=== PATIENT | male | born 1950 | race Caucasian/White ===

== ENCOUNTER → 2017-04-19 16:51 | Outpatient (CLI) | payer MEDICARE, OTHER, SELFPAY ==
--- NOTE | 2017-04-19 17:04 | RAD_ITS ---
STUDY: X-RAY CHEST REASON FOR EXAM: Male, 66 years old. Cough, COPD TECHNIQUE: PA and lateral views of the chest. COMPARISON: None. FINDINGS: Lungs are adequately inflated with bibasilar atelectasis or scarring. No acute airspace disease. No definitive pulmonary nodule on plain film. There is no demonstrated pleural abnormality. There is borderline cardiomegaly. Normal mediastinum and franko. Normal visualized pulmonary arteries. Normal visualized aortic arch and descending thoracic aorta. Normal visualized thoracic spine. Normal visualized ribs, clavicles, and shoulders. There is no demonstrated abnormality of the visualized soft tissue structures of the upper abdomen. RAD/Chest PA and Lateral IMPRESSION: Adequately inflated lungs with bibasilar atelectasis or scarring. No definitive nodule on plain film Electronically Signed: Luther Argueta DO at 8:51 EST Tel , Service support ,
[2017-04-19 18:08] LABS: Absolute Lymphocyte Count 0.86 X10^3/ul (0.83-4.51); Absolute Neutrophil Count 8.7 X10^3/uL (2.0-7.7); Basophil# 0.01 X10^3/uL; Basophil% 0.1 % (0-1); Eosinophil# 0.13 X10^3/uL; Eosinophils% 1.3 % (0-5); Hematocrit 42.4 % (40-54); Hemoglobin 13.4 g/dl (13.0-16.5); Lymphocyte # 0.86 X10^3/ul (4.0); Lymphocyte % 8.4 % (19-41); Mean Corp Hgb Conc 31.6 g/gl (32-36); Mean Corpuscular Hgb 27.5 pg (27.0-32.0); Mean Corpuscular Volume 87.1 fL (80-94); Mean Platelet Vol. 9.3 fl (6.2-12.0); Monocyte# 0.53 X10^3/uL; Monocyte% 5.2 % (0-10); Neutrophil # 8.72 X10^3/uL (2.7-7.7); Neutrophil % 84.8 % (47-70); Platelet Count 242 K/mm3 (150-450); RBC Distribution Width CV 14.4 % (11.6-14.6); RBC Distribution Width SD 45.9 fl (35.1-43.9); Red Blood Count 4.87 M/mm3 (4.6-6.2); White Blood Count 10.3 K/mm3 (4.4-11.0)
[2017-04-19 18:09] LABS: POSITIVE COUNT NO; POSITIVE DIFFERENTIAL NO; POSITIVE MORPHOLOGY NO
[2017-04-19 19:24] LABS: Rheumatoid Factor < 10.0 IU/mL (<15)
[2017-04-21 14:13] LABS: ANTINUCLEAR ANTIBODIES DIRECT Positive (Negative)
[2017-04-22 03:07] LABS: Cytoplasmic Ab (C-ANCA) <1:20 titer (Neg:<1:20); QNTFERON TB Ag Minus Nil Value < 0 IU/mL (.); QNTFERON TB Ag Value 0.01 IU/mL (.); QNTFERON TB Mitogen Value > 10.00 IU/mL (.); QNTFERON TB Nil Value 0.02 IU/mL (.)
[2017-04-22 10:57] LABS: Angiotensin Convert Enzyme 55 U/L (14-82); Perinuclear Ab (P-ANCA) <1:20 titer (Neg:<1:20); QNTIFERON TB Gold Negative (Negative)
== END ==
PROVIDERS: Visit Provider Internal Medicine Pulmonary Disease
DX: J44.9 Chronic obstructive pulmonary disease, unspecified (principal); J18.9 Pneumonia, unspecified organism
CPT/HCPCS: 36415; 71046; 82164; 85025; 86038; 86256; 86431; 86480

== ENCOUNTER → 2017-05-10 11:13 | Outpatient (CLI) | payer MEDICARE, OTHER, SELFPAY ==
--- NOTE | 2017-05-10 11:17 | RAD_ITS ---
STUDY: X-RAY CHEST REASON FOR EXAM: Male, 66 years old. COPD. TECHNIQUE: PA and lateral views of the chest. COMPARISON: Comparison is made with prior study dated April 19, 2017. FINDINGS: Mild residual infiltrates persist at the lung bases although there has been moderate degree of improvement. Further follow-up is recommended. There is no demonstrated pleural abnormality. Normal size heart. Normal mediastinum and franko. Normal visualized pulmonary arteries. There is atherosclerotic tortuosity of the aortic arch and descending thoracic aorta. Normal visualized thoracic spine. Normal visualized ribs, clavicles, and shoulders. Hiatal hernia. RAD/Chest PA and Lateral IMPRESSION: Residual infiltrates in both lower lobes although there has been a moderate degree of improvement as compared to prior study. Electronically Signed: Beka Rivera MD at 20:08 EST Tel [phone], Service support ,
== END ==
PROVIDERS: Family Provider Family Medicine; PCP Family Medicine; Visit Provider Internal Medicine Pulmonary Disease
DX: J44.9 Chronic obstructive pulmonary disease, unspecified (principal); R91.8 Other nonspecific abnormal finding of lung field
CPT/HCPCS: 71046

== ENCOUNTER 2017-05-18 12:05 | Observation (INO) | payer MEDICARE, OTHER, SELFPAY ==
[2017-05-10 10:40] VITALS: BP 118/65; PULSE 72; RESP 17; TEMP 37.3; O2SAT 95; BMI 45.0
[2017-05-18] VITALS (13 sets, daily range): BP systolic 141–168; BP diastolic 45–108; PULSE 78–98; RESP 16–78; TEMP 36.8–37.9; O2SAT 90–98; BMI 41.8
[2017-05-18] MEDS: Ipratropium/Albuterol Sulfate 3 ML AMPUL.NEB INHALATION (12:00)
[2017-05-18 12:11] LABS: Bedside Glucose 133 mg/dL (70-110)
[2017-05-18] MEDS: Cefazolin 2 GM in 0.9% Normal Saline 100 ML IV (12:37)
--- NOTE | 2017-05-18 13:20 | CALC_PTH ---
PATIENT: JASMYNE NARVAEZ LOC: MS3 U#:[id number] AGE/SX: 66/M ROOM: [facility] [place] RE05/18/[address]: Dr. Erwin Diaz MD : 1950 BED: 1 DIS: 05/20/2017 SPEC #: [id number] RECD: 05/19/17 12:12 STATUS: LINDA REQ #: [id number] PANCHO: 05/18/17 13:[address]: Delbert Dawson DEPT: SURGICAL PATHOLOGY RECD BY: Kishan Stanley ENTERED: 05/19/17 13:10 SP TYPE: Calculi OTHR DR: MD Dr. Yoli Lott MD Tissues: CALCULI Procedures: Surgery Specimen Level I Comments: @ Ordering doctor for CUATE edited from to @ by RGOOD at 05/19/17 1505 @ Submitting doctor edited from to @ by RGOOD at 05/19/17 1505 HEADER OPERATION: Establishment of nephrostomy access, nephrostolithotomy, cyst PRE-OP DIAGNOSIS: Right renal calculi TISSUE SUBMITTED: Calculi GROSS DIAGNOSIS Fragments of stone, clinically right renal calculi, saved entirely for analysis if needed. BIA:hawa 05/19/17 COMMENT If chemical analysis is requested on this specimen, please notify the laboratory. GROSS DESCRIPTION Received in fixative is one container labeled with the patient's name and designated calculi. The specimen consists of multiple irregular fragments of stones mixed with blood clot that in aggregate measure 3.5 x 3 x 0.5 cm. The stones are levy-brown in color. The stones are saved for analysis if needed. / BIA:hawa 05/19/17 CPT: 71598
[2017-05-18] MEDS: Bupivacaine 0.25% 30 ML Vial (16:15)
--- NOTE | 2017-05-18 16:46 | PCM.OPRPT ---
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 1 cystoscopy and right retrograde pyelogram and placement of a right axis sheath. 2 fluoroscopic guided placement of a nephrostomy track and establishment of a right nephrostomy track. 3 right percutaneous nephrostolithotomy for stone about 5 cm in size stage 1 procedure. 4 Right nephrostomy tube placement and right nephrostogram. Description of Surgical Findings:: 66-year-old male was taken back to the operating room at the smooth induction of general anesthesia he was first placed supine on the table and the penis and testicles were prepped and draped in usual sterile fashion I went into the bladder with a 21 [place]bourgish rigid cystourethroscope. He had a very high bladder neck and then I will got into the bladder and identified the left and right ureteral orifice. The right ureteral orifice was cannulated with a Glidewire and a Pollack catheter I had the use the Bridge to help deflect the wire because of the very high bladder neck. I then placed a Pollack catheter did a retrograde pyelogram and then advanced a wire up into the right kidney and then advanced a axis sheath up into the right kidney. The patient was then put over on a cart and then repositioned prone make sure that all pressure points were padded. The right flank was then prepped shaved prepped and draped in usual sterile fashion I then reached down and reach the axis sheath from below to get axis from below the ureter first we then went in with ureteroscopy and went up the ureter with her ureteroscope and found the stone in the kidney we then located R axis point to the stone that we wanted to get to the kidney. Patient was very large and severe obese patient with a BMI of 41. Took quite some time to triangulate and find the axis tract to the kidney used a long stylette needle and was able to get underneath the rib to the kidney using as long needle to get a tract to the stone. However the tract was so long that the axis sheath would not bridge the entire length of the track so once the wire was in place over the wire I left a safety wire that went into the pelvis and down the ureter I then went in with the nephrostomy tube balloon dilator and dilated the track using the entire length of the balloon with 30 laura of pressure over that I advanced the axis sheath the access sheath was about 16 cm in length it was buried in the skin and still was not quite long enough to get all the way to the stone in the kidney I then used the renal dilators to manually dilate the rest of the track. I then went into the access sheath with the nephroscope and then with the flexible cystoscope initially we had a lot of bleeding after the dilation of the tract fortunately the bleeding stopped. I then went in with the nephroscope and encountered the stone either follow the wire through the renal parenchyma since the axis sheath would not reach all the way to the stone. I avoided going in and out of the kidney because of the difficult access. At this point probably have been working about 2-1/2 hours then we started working on the stone with the ultrasonic lithotripter and pneumatic lithotripter and started working on the stone fragmenting the stone. The stone was quite hard and we increased the power of the ultrasound lithotripter as much as possible and the pneumatic lithotripter as much as possible. After about 2 hours the major stone fragment had been broken up into little pieces but there is still a lot of pieces that were within the renal pelvis at this point given the patient's overall health and condition felt it would be best to leave a nephrostomy tube to let and establish track develop and bring him back for a second stage procedure to remove the rest the of the remaining fragments in the right kidney so a lot of the fragments were removed probably about 50% but after such a long anesthesia decided to abort and bring him back for second stage percutaneous nephrostolithotomy procedure. At this point put a wire into the renal pelvis all the wire advanced a 16 [place] tip catheter with 33 cc in the balloon left this in the in the pelvis and then remove the access sheath secured the nephrostomy tube to the skin and sutured the openings in the skin with subcuticular stitches bandages and dressings were placed. The patient was then flipped prone replace the Abel catheter into the bladder and drain the bladder and then the patient's anesthetic was reversed. We performed a nephrostogram confirmed that the nephrostomy tube was in good position in the kidney we removed the access sheath remove the ureteroscope and the patient anesthetic was reversed is taken back to the PACU in good condition with nephrostomy tube draining well. He will stay in the hospital few days, will consult hospitalist given his multiple medical problems including lung problems and diabetes. And he will have to come back for a second stage percutaneous procedure in about a month. Type of Anesthesia:: General Anesthesiologist: Olaf Nicholson Drains: right nephrostomy tube and abel catheter. - Admit VTE Documentation VTE Present on Admission: No VTE Mechan Device Prophylaxis: SCD's VTE Pharm Prophylaxis ordered?: No Reason prophylaxis not ordered:: Treatment Not Indicated
[2017-05-18 17:06] LABS: Bedside Glucose 161 mg/dL (70-110)
[2017-05-18 17:23] LABS: Hematocrit 37.6 % (40-54); Mean Corp Hgb Conc 31.9 g/gl (32-36); Mean Corpuscular Volume 87.9 fL (80-94); Platelet Count 159 K/mm3 (150-450); RBC Distribution Width CV 14.2 % (11.6-14.6); RBC Distribution Width SD 45.3 fl (35.1-43.9); Red Blood Count 4.28 M/mm3 (4.6-6.2); White Blood Count 7.7 K/mm3 (4.4-11.0)
[2017-05-18 17:24] LABS: Scan Indicated on CBC? Y/N NO
--- NOTE | 2017-05-18 17:32 | PN_ITS ---
Subjective: Patient is a 66-year-old gentleman with multiple comorbidities who was admitted by Dr. 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 Patient underwent 1 cystoscopy and right retrograde pyelogram and placement of a right axis sheath; fluoroscopic guided placement of a nephrostomy track and establishment of a right nephrostomy track; right percutaneous nephrostolithotomy for stone about 5 cm in size stage 1 procedure.; Right nephrostomy tube placement and right nephrostogram 05/18/[address] Dawson the hospitalist service was consulted to assist with management of patient medical comorbidities including hypertension as well as diabetes mellitus type 2 Objective: GENERAL: cooperative HEENT: Clear conjunctiva, NECK; supple, normal thyroid, CHEST: Diminished to auscultation bilaterally, bilateral rhonchi HEART: Regular S1 S2, no audible murmurs ABDOMEN: soft, non-tender, normoactive bowel sounds, RECTAL: deferred EXTREMITIES: No edema, no clubbing, no cyanosis. 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 SKIN: No lesions no erythema, Vitals/I&O's: Vital Signs Temp Pulse Resp BP Pulse Ox 100.2 F H 92 20 H 156/83 H 98 05/18/17 16:51 05/18/17 17:15 05/18/17 17:15 05/18/17 17:15 05/18/17 17:15 Oxygen Flow Rate 2 Oxygen Delivery Method Nasal Cannula Weight: 136.078 kg Body Mass Index (BMI) 41.8 Laboratory Results 05/18/17 12:01: POC Glucose 133 H 05/18/17 16:59: POC Glucose 161 H 05/18/17 17:02: WBC 7.7, RBC 4.28 L, Hgb 12.0 L, Hct 37.6 L, MCV 87.9, MCH 28.0 , MCHC 31.9 L, RDW 14.2, RDW Differential 45.3 H, Plt Count 159, MPV 9.0 05/18/17 17:02: Sodium Pending, Potassium Pending, Chloride Pending, Carbon Dioxide Pending, Anion Gap Pending, BUN Pending, Creatinine Pending, Est GFR ( MDRD) Af Amer Pending, Est GFR (MDRD) Non-Af Pending, BUN/Creatinine Ratio Pending, Glucose Pending, Calcium Pending Current Medications Acetaminophen (Tylenol) 500 - 1,000 mg PO Q8H PRN PRN PRN Reason: PAIN Hydrocodone Bitart/Acetaminophen ([place] 5mg-325mg) 1 - 2 tablet PO Q6H PRN PRN PRN Reason: Mild-moderate(pain scale 1-5) Albuterol Sulfate (Ventolin Aerosols) 2.5 mg INHALATION Q4H PRN PRN Reason: WHEEZING Albuterol Sulfate (Ventolin Aerosols) 2.5 mg INHALATION Q6HWA.RT [facility] Allopurinol (Zyloprim) 100 mg PO BIDCM [facility] Amlodipine Besylate (Norvasc) 10 mg PO DAILY [facility] Artificial Tears (Tears Naturale, Artificial Tears) 1 drop OPHTHALMIC 4X/DAY [facility] Atorvastatin Calcium (Lipitor) 5 mg PO QHS [facility] Budesonide (Pulmicort Aerosol) 0.5 mg INHALATION Q12H.RT [facility] Cholecalciferol (Vitamin D) 2,000 unit PO DAILYCM [facility] Cyanocobalamin (Vitamin B12) 500 mcg PO DAILYCM [facility] Docusate Sodium (Colace) 200 mg PO BID [facility] Furosemide (Lasix) 20 mg PO MoTuWeThFr@1000 [facility] Sodium Chloride () 1,000 mls @ 125 mls/hr IV .Q8H [facility] Ciprofloxacin (Cipro) 400 mg in 200 mls @ 200 mls/hr IV Q12 [facility] Stop: 05/19/17 10:59 Loperamide HCl (Imodium) 4 mg PO 4X/DAY [facility] Loratadine (Claritin) 10 mg PO DAILY [facility] Losartan Potassium (Cozaar) 100 mg PO DAILY [facility] Metoclopramide HCl (Reglan) 10 mg IV Q8H PRN PRN PRN Reason: Nausea/vomiting Metoprolol Tartrate (Lopressor (Beta Osvaldo)) 25 mg PO BID [facility] Morphine Sulfate (Morphine) 2 mg IV Q2H PRN PRN PRN Reason: Mod-severe(pain scale 6-10) Non-Formulary Medication (Difluprednate) 1 drop EACH EYE BID [facility] Non-Formulary Medication (Nepafenac [Ilevro]) 1 drop OP BID [facility] Ondansetron HCl (Zofran) 4 mg IV Q8H PRN PRN Reason: Nausea Tamsulosin HCl (Flomax) 0.4 mg PO QHS [facility] Assessment/Plan Patient is a 66-year-old gentleman with multiple comorbidities who was admitted by Dr. 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 Patient underwent 1 cystoscopy and right retrograde pyelogram and placement of a right axis sheath; fluoroscopic guided placement of a nephrostomy track and establishment of a right nephrostomy track; right percutaneous nephrostolithotomy for stone about 5 cm in size stage 1 procedure.; Right nephrostomy tube placement and right nephrostogram 05/18/[address] Dawson the hospitalist service was consulted to assist with management of patient medical comorbidities including hypertension as well as diabetes mellitus type 2 1. 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 Patient underwent cystoscopy and right retrograde pyelogram and placement of a right axis sheath; fluoroscopic guided placement of a nephrostomy track and establishment of a right nephrostomy track; right percutaneous nephrostolithotomy for stone about 5 cm in size stage 1 procedure. ; Right nephrostomy tube placement and right nephrostogram on 05/18/[address] Dawson 2. Hypertension-blood pressure controlled, home medications continued with dose adjustment as needed 3. Dyslipidemia-patient is on statin therapy, continued at home dose 4. Diabetes mellitus type II: Controlled on long acting insulin, Accu-Cheks a.c. and at bedtime and covered with sliding scale insulin 5. Morbid obesity with BMI of 41.8 weight loss recommended 6. COPD (and emphysema0 patient is followed by Dr. Lozano 7. Gout 8. Previous history of DVT patient has an IVC filter 9. Obstructive sleep apnea on CPAP at night 10. History of right adrenal mass followed by PCP 11. DVT prophylaxis recommend SCDs for now and chemoprophylaxis when okay with urology Code Visit Inpatient E&M: 97961 [facility] Hosp L3
[2017-05-18 17:47] LABS: Anion Gap 7 (5-15); BUN 20 mg/dL (7-18); Calcium,Total 8.4 mg/dL (8.5-10.1); Chloride 107 mmol/L (98-107); Creatinine, Serum 2.01 mg/dL (0.70-1.30); EST Glomerular Filtration Rate 36 mL/min (>60); Est Glom Filt Rate - Afr Amer 43 mL/min (>60); Estimated Creatinine Clearance 39.02 ml/min; Glucose 151 mg/dL (74-106); Potassium 4.6 mmol/L (3.5-5.1); Sodium Level 142 mmol/L (136-145)
[2017-05-18] MEDS: 0.9% Normal Saline 1,000 ML 125 ML IV (18:24)
--- NOTE | 2017-05-18 19:18 | NURSING ---
no belongings bag with pt- called sec. and she will call pacu
[2017-05-18 19:31] LABS: Bedside Glucose 176 mg/dL (70-110)
[2017-05-18] MEDS: Albuterol 2.5 MG/3 ML VIAL.NEB. INHALATION (19:32)
[2017-05-18] MEDS: Budesonide Respules 0.5 MG/2 ML AMPUL.NEB. INHALATION (19:32)
[2017-05-18] MEDS: Metoprolol Tartrate 25 MG Tablet PO (21:41)
[2017-05-18] MEDS: Atorvastatin Calcium 10 MG Tablet 5 MG PO (21:42)
[2017-05-18] MEDS: Docusate Sodium 100 MG Capsule 200 MG PO (21:42)
[2017-05-18] MEDS: Tamsulosin HCl 0.4 MG Capsule PO (21:42)
[2017-05-18] MEDS: Ciprofloxacin 400 MG/200 ML BAG 200 MG IV (21:51)
[2017-05-18 23:30] LABS: Bedside Glucose 180 mg/dL (70-110)
[2017-05-19] VITALS (11 sets, daily range): BP systolic 125–152; BP diastolic 68–75; PULSE 75–94; RESP 18; TEMP 37.3–37.7; O2SAT 92–98
[2017-05-19] MEDS: 0.9% Normal Saline 1,000 ML 125 ML IV (03:44)
[2017-05-19 05:45] LABS: Hemoglobin 11.4 g/dl (13.0-16.5); Mean Corp Hgb Conc 32.6 g/gl (32-36); Mean Corpuscular Hgb 28.6 pg (27.0-32.0); Mean Corpuscular Volume 87.7 fL (80-94); Mean Platelet Vol. 9.1 fl (6.2-12.0); Platelet Count 185 K/mm3 (150-450); RBC Distribution Width SD 44.1 fl (35.1-43.9); Red Blood Count 3.99 M/mm3 (4.6-6.2)
[2017-05-19 05:52] LABS: Scan Indicated on CBC? Y/N NO
[2017-05-19 06:06] LABS: Anion Gap 6 (5-15); BUN 21 mg/dL (7-18); BUN/Creat Ratio 10.8 RATIO (10-20); Calcium,Total 7.9 mg/dL (8.5-10.1); Chloride 105 mmol/L (98-107); Creatinine, Serum 1.95 mg/dL (0.70-1.30); EST Glomerular Filtration Rate 37 mL/min (>60); Est Glom Filt Rate - Afr Amer 45 mL/min (>60); Estimated Creatinine Clearance 40.22 ml/min; Glucose 189 mg/dL (74-106); Potassium 5.1 mmol/L (3.5-5.1); Sodium Level 139 mmol/L (136-145)
[2017-05-19] MEDS: Albuterol 2.5 MG/3 ML VIAL.NEB. INHALATION ×3 (06:57→19:44)
[2017-05-19] MEDS: Budesonide Respules 0.5 MG/2 ML AMPUL.NEB. INHALATION ×2 (06:57→19:44)
[2017-05-19 07:06] LABS: Bedside Glucose 171 mg/dL (70-110)
--- NOTE | 2017-05-19 07:12 | PCM.DC.URO ---
Discharge Diet: Light diet - advance as tolerated Discharge Activity: Return to Normal Activity May shower in (days): 1 Call your doctor if your incision/area has: Continuous Slow Oozing, Sudden Increased Bleeding, Increased Pain/ Swelling, Increased Redness, Foul Smelling Discharge, Swelling at the incision site Call your doctor if you observe: Fever of 101 or Higher, Inability to urinate, Inability to have a bowel movement, Uncontrolled pain Suture Line Care: Avoid Pulling/Pushing, Avoid Pinching/Bending Additional Instructions: home with nephrostomy tube, If dressing falls off okay to change with dry sterile dressing. Allergies/Adverse Reactions: Allergies Penicillins [PCN] Allergy (Verified 05/10/17 10:22) Unknown Medications to take at Discharge Acetaminophen [Extra Strength Non-Aspirin] 1 - 2 tab PO Q8H PRN PRN 05/10/17 Albuterol Inhaler [Ventolin Hfa] 1 - 2 puff INHALATION Q6H PRN PRN 05/10/17 Allopurinol 100 mg PO BID 05/10/17 Amlodipine [Norvasc] 10 mg PO DAILY 05/10/17 Aspirin [Aspir-Low] 81 mg PO DAILY 05/10/17 Budesonide/Formoterol 160/4.5 [Symbicort 160/4.5 Mcg Inhaler (SP)] 2 puff INHALATION BID 05/10/17 Cetirizine HCl [Zyrtec] 10 mg PO DAILY 05/10/17 Cholecalciferol (Vitamin D3) [Vitamin D3] 2,000 unit PO DAILY 05/10/17 Cyanocobalamin [Vitamin B12] 500 mcg PO DAILY 05/10/17 Difluprednate [Durezol] 1 drop EACH EYE BID 05/10/17 Insulin NPH Human Isophane [Novolin N] 42 unit SQ QHS 05/10/17 Insulin NPH Human Isophane [Novolin N] 55 unit SQ DAILY 05/10/17 Linagliptin [Tradjenta] 5 mg PO DAILY 05/10/17 Loperamide [Imodium] 4 mg PO 4X/DAY 05/10/17 Losartan Potassium [Cozaar] 100 mg PO DAILY 05/10/17 Metoprolol Tartrate [Lopressor (beta gisele)] 25 mg PO BID 05/10/17 Nepafenac [Ilevro] 1 drop OP BID 05/10/17 Polyvinyl Alcohol/Povidone/Pf [Refresh Classic Eye Drops] 1 each OP 4X/DAY 05/10/17 Simvastatin [Zocor] 10 mg PO QHS 05/10/17 Tamsulosin HCl [Flomax] 0.4 mg PO QHS 05/10/17 Torsemide [Demadex] 10 mg PO MOTUWETHFR 05/10/17 Ciprofloxacin [Cipro] 500 mg PO BID #14 tab 05/19/17 The following prescriptions were given: Ciprofloxacin [Cipro] 500 mg PO BID #14 tab Primary Care Physician: Yoli Benedict MD [Primary Care Provider] - Please Follow Up With: Delbert Dawson MD When: My office will call you to get set up for 2nd surgery.
[2017-05-19] MEDS: Cyanocobalamin 500 MCG Tablet PO (08:13)
[2017-05-19] MEDS: Allopurinol 100 MG Tablet PO ×2 (08:13→18:36)
--- NOTE | 2017-05-19 09:09 | PCM.PN.HOSP ---
Subjective: Patient seen plan is for patient to be discharged home today by Dr. Dawson Objective: GENERAL: cooperative HEENT: Clear conjunctiva, NECK; supple, normal thyroid, CHEST: Diminished to auscultation bilaterally, bilateral rhonchi HEART: Regular S1 S2, no audible murmurs ABDOMEN: soft, non-tender, normoactive bowel sounds, RECTAL: deferred EXTREMITIES: No edema, no clubbing, no cyanosis. 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 SKIN: No lesions no erythema, Vitals/I&O's: Vital Signs Temp Pulse Resp BP Pulse Ox 99.2 F H 77 18 152/73 H 93 05/19/17 03:29 05/19/17 06:57 05/19/17 06:57 05/19/17 03:29 05/19/17 06:57 Oxygen Flow Rate 2 Oxygen Delivery Method Nasal Cannula Weight: 136.078 kg Body Mass Index (BMI) 41.8 Finger Stick Blood Glucose 161 Intake and Output for Last 24 Hours 05/17/17 05/18/17 05/19/17 23:59 23:59 23:59 Intake Total 3400 / 3400 774 / 774 Output Total 805 / 805 775 / 775 Balance 2595 / 2595 -1 / -1 Laboratory Results 05/18/17 12:01: POC Glucose 133 H 05/18/17 16:59: POC Glucose 161 H 05/18/17 17:02: WBC 7.7, RBC 4.28 L, Hgb 12.0 L, Hct 37.6 L, MCV 87.9, MCH 28.0, MCHC 31.9 L, RDW 14.2, RDW Differential 45.3 H, Plt Count 159, MPV 9.0 05/18/17 17:02: Sodium 142, Potassium 4.6, Chloride 107, Carbon Dioxide 28.0, Anion Gap 7, BUN 20 H, Creatinine 2.01 H, Estim Creat Clear Calc 39.02, Est GFR (MDRD) Af Amer 43 L, Est GFR (MDRD) Non-Af 36 L, BUN/Creatinine Ratio 10.0, Glucose 151 H, Calcium 8.4 L 05/18/17 19:12: POC Glucose 176 H 05/18/17 21:49: POC Glucose 180 H 05/19/17 05:32: WBC 10.0, RBC 3.99 L, Hgb 11.4 L, Hct 35.0 L, MCV 87.7, MCH 28.6, MCHC 32.6, RDW 14.0, RDW Differential 44.1 H, Plt Count 185, MPV 9.1 05/19/17 05:32: Sodium 139, Potassium 5.1, Chloride 105, Carbon Dioxide 28.0, Anion Gap 6, BUN 21 H, Creatinine 1.95 H, Estim Creat Clear Calc 40.22, Est GFR (MDRD) Af Amer 45 L, Est GFR (MDRD) Non-Af 37 L, BUN/Creatinine Ratio 10.8, Glucose 189 H, Calcium 7.9 L 05/19/17 07:02: POC Glucose 171 H Current Medications Acetaminophen (Tylenol) 500 - 1,000 mg PO Q8H PRN PRN PRN Reason: PAIN Hydrocodone Bitart/Acetaminophen ([place] 5mg-325mg) 1 - 2 tablet PO Q6H PRN PRN PRN Reason: Mild-moderate(pain scale 1-5) Albuterol Sulfate (Ventolin Aerosols) 2.5 mg INHALATION Q4H PRN PRN Reason: WHEEZING Albuterol Sulfate (Ventolin Aerosols) 2.5 mg INHALATION Q6HWA.RT [facility] Last Admin: 05/19/17 06:57 Dose: 2.5 mg [facility]op[facility]rim) [facility] Last Admin: 05/19/17 08:13 Dose: 100 mg Amlodipine Besylate (Norvasc) 10 mg PO DAILY [facility] Artificial Tears (Tears Naturale, Artificial Tears) 1 drop OPHTHALMIC 4X/DAY [facility] Last Admin: 05/18/17 21:51 Dose: 1 drop Atorvastatin Calcium (Lipitor) 5 mg PO QHS [facility] Last Admin: 05/18/17 21:42 Dose: 5 mg Budesonide (Pulmicort Aerosol) 0.5 mg INHALATION Q12H.RT [facility] Last Admin: 05/19/17 06:57 Dose: 0.5 mg Cholecalciferol (Vitamin D) 2,000 [facility] Last Admin: 05/19/17 08:13 Dose: 2,000 unit Cyanocobalamin (Vitamin B12) 500 [facility]cg [facility] Last Admin: 05/19/17 08:13 Dose: 500 mcg Dextrose (D50w Syringe) 0 gm IV X1 PRN; Protocol PRN Reason: Hypoglycemia Docusate Sodium (Colace) 200 mg PO BID [facility] Last Admin: 05/18/17 21:42 Dose: 200 mg Furosemide (Lasix) 20 mg PO MoTuWeThFr@1000 [facility] Glucagon () 1 mg IM .X1 PRN PRN Reason: Hypoglycemia Sodium Chloride () 1,000 mls @ 125 mls/hr IV .Q8H [facility] Last Admin: 05/19/17 03:44 Dose: 125 mls/hr Ciprofloxacin (Cipro) 400 mg in 200 mls @ 200 mls/hr IV Q12 [facility] Stop: 05/19/17 10:59 Last Admin: 05/18/17 21:51 Dose: 200 mls/hr Insulin Aspart (Novolog Flexpen (Bk)) 0 units SC ACHS [facility] PRN Reason: Protocol Last Admin: 05/19/17 08:12 Dose: 2 u Insulin Detemir (Levemir (Bkc)) 10 units SC BREAKFAST [facility] Last Admin: 05/19/17 08:12 Dose: 10 u Insulin Detemir (Levemir (Bkc)) 10 units SC DINNER [facility] Loperamide HCl (Imodium) 4 mg PO 4X/DAY [facility] Last Admin: 05/19/17 03:10 Dose: Not Given Loratadine (Claritin) 10 mg PO DAILY [facility] Losartan Potassium (Cozaar) 100 mg PO DAILY [facility] Metoclopramide HCl (Reglan) 10 mg IV Q8H PRN PRN PRN Reason: Nausea/vomiting Metoprolol Tartrate (Lopressor (Beta Osvaldo)) 25 mg PO BID [facility] Last Admin: 05/18/17 21:41 Dose: 25 mg Morphine Sulfate (Morphine) 2 mg IV Q2H PRN PRN PRN Reason: Mod-severe(pain scale 6-10) Non-Formulary Medication (Difluprednate) 1 drop EACH EYE BID [facility] Non-Formulary Medication (Nepafenac [Ilevro]) 1 drop OP BID [facility] Ondansetron HCl (Zofran) 4 mg IV Q8H PRN PRN Reason: Nausea Sodium Chloride () 5 - 30 ml IV UD PRN PRN Reason: SALINE FLUSH Tamsulosin HCl (Flomax) 0.4 mg PO QHS [facility] Last Admin: 05/18/17 21:42 Dose: 0.4 mg Assessment/Plan Patient is a 66-year-old gentleman with multiple comorbidities who was admitted by Dr. 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 Patient underwent 1 cystoscopy and right retrograde pyelogram and placement of a right axis sheath; fluoroscopic guided placement of a nephrostomy track and establishment of a right nephrostomy track; right percutaneous nephrostolithotomy for stone about 5 cm in size stage 1 procedure.; Right nephrostomy tube placement and right nephrostogram 05/18/[address] Dawson the hospitalist service was consulted to assist with management of patient medical comorbidities including hypertension as well as diabetes mellitus type 2 1. 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 Patient underwent cystoscopy and right retrograde pyelogram and placement of a right axis sheath; fluoroscopic guided placement of a nephrostomy track and establishment of a right nephrostomy track; right percutaneous nephrostolithotomy for stone about 5 cm in size stage 1 procedure.; Right nephrostomy tube placement and right nephrostogram on 05/18/[address] Dawosn 2. Hypertension-blood pressure controlled, home medications continued with dose adjustment as needed 3. Dyslipidemia-patient is on statin therapy, continued at home dose 4. Diabetes mellitus type II: Controlled on long acting insulin, Accu-Cheks a.c. and at bedtime and covered with sliding scale insulin 5. Morbid obesity with BMI of 41.8 weight loss recommended 6. COPD (and emphysema0 patient is followed by Dr. Lozano 7. Gout 8. Previous history of DVT patient has an IVC filter 9. Obstructive sleep apnea on CPAP at night 10. History of right adrenal mass followed by PCP 11. DVT prophylaxis recommend SCDs for now and chemoprophylaxis when okay with urology Code Visit Inpatient E&M: 40518 [facility] Hosp L2
[2017-05-19] MEDS: Ciprofloxacin 400 MG/200 ML BAG 200 MG IV (09:37)
[2017-05-19] MEDS: Loratadine 10 MG Tablet PO (09:38)
[2017-05-19] MEDS: Metoprolol Tartrate 25 MG Tablet PO ×2 (09:38→21:00)
[2017-05-19] MEDS: Furosemide 20 MG Tablet PO (09:38)
[2017-05-19] MEDS: Docusate Sodium 100 MG Capsule 200 MG PO ×2 (09:38→21:00)
[2017-05-19] MEDS: Losartan Potassium 100 MG Tablet PO (09:38)
[2017-05-19] MEDS: amLODIPine 10 MG Tablet PO (09:39)
[2017-05-19] MEDS: 0.9% NaCl Peripheral Flush Adult/Peds IV (09:42)
[2017-05-19] MEDS: Loperamide 2 MG Capsule 4 MG PO ×4 (09:43→21:00)
[2017-05-19 11:50] LABS: Bedside Glucose 241 mg/dL (70-110)
[2017-05-19 17:41] LABS: Bedside Glucose 261 mg/dL (70-110)
--- NOTE | 2017-05-19 18:40 | NURSING ---
VISITING WITH FRIENDS. DENIES ANY PAIN OR NEEDS AT THIS TIME.
[2017-05-19] MEDS: Atorvastatin Calcium 10 MG Tablet 5 MG PO (21:00)
[2017-05-19] MEDS: Tamsulosin HCl 0.4 MG Capsule PO (21:00)
[2017-05-19 21:11] LABS: Bedside Glucose 215 mg/dL (70-110)
[2017-05-20] VITALS (7 sets, daily range): BP systolic 135–143; BP diastolic 66–74; PULSE 73–84; RESP 18–20; TEMP 37.3; O2SAT 92–94
--- NOTE | 2017-05-20 04:30 | NURSING ---
ATTEMPTED TO WEAN OFF 02 WHILE AWAKE PO 91% ON RA. WHEN ASLEEP DROP TO 88% 02 AT 2LNC REAPPLIED. NEPROSTOMY TUBE FLUSH WITH 10CC. PT TOLERATE IT WELL
[2017-05-20] MEDS: Budesonide Respules 0.5 MG/2 ML AMPUL.NEB. INHALATION (06:52)
[2017-05-20] MEDS: Albuterol 2.5 MG/3 ML VIAL.NEB. INHALATION (06:52)
[2017-05-20 06:56] LABS: Bedside Glucose 185 mg/dL (70-110)
--- NOTE | 2017-05-20 07:50 | PCM.PN.HOSP ---
Subjective: Patient seen admitted to improved clinical condition compared to the day prior. Patient is stable for discharge from medicine Objective: GENERAL: cooperative HEENT: Clear conjunctiva, NECK; supple, normal thyroid, CHEST: Diminished to auscultation bilaterally, HEART: Regular S1 S2, no audible murmurs ABDOMEN: soft, non-tender, normoactive bowel sounds, RECTAL: deferred EXTREMITIES: No edema, no clubbing, no cyanosis. [employer]ELOPER: Awake, no lateralizing signs. SKIN: No lesions no erythema, Vitals/I&O's: Vital Signs Temp Pulse Resp BP Pulse Ox 99.1 F 73 18 142/66 H 94 05/20/17 04:50 05/20/17 07:10 05/20/17 07:10 05/20/17 04:50 05/20/17 07:23 Oxygen Flow Rate 2 Oxygen Delivery Method Nasal Cannula Weight: 136.078 kg Body Mass Index (BMI) 41.8 Finger Stick Blood Glucose 161 Intake and Output for Last 24 Hours 05/18/17 05/19/17 05/20/17 23:59 23:59 23:59 Intake Total 3400 / 3400 1824 / 1824 120 / 120 Output Total 805 / 805 1000 / 1000 275 / 275 Balance 2595 / 2595 824 / 824 -155 / -155 Laboratory Results 05/19/17 11:31: POC Glucose 241 H 05/19/17 17:17: POC Glucose 261 H 05/19/17 20:57: POC Glucose 215 H 05/20/17 06:53: POC Glucose 185 H Current Medications Acetaminophen (Tylenol) 500 - 1,000 mg PO Q8H PRN PRN PRN Reason: PAIN Hydrocodone Bitart/Acetaminophen ([place] 5mg-325mg) 1 - 2 tablet PO Q6H PRN PRN PRN Reason: Mild-moderate(pain scale 1-5) Albuterol Sulfate (Ventolin Aerosols) 2.5 mg INHALATION Q4H PRN PRN Reason: WHEEZING Albuterol Sulfate (Ventolin Aerosols) 2.5 mg INHALATION Q6HWA.RT ALXEIS Last Admin: 05/20/17 06:52 Dose: 2.5 mg Allopurinol (Zyloprim) 100 mg PO [facility] Last Admin: 05/19/17 18:36 Dose: 100 mg Amlodipine Besylate (Norvasc) 10 mg PO DAILY [facility] Last Admin: 05/19/17 09:39 Dose: 10 mg Artificial Tears (Tears Naturale, Artificial Tears) 1 drop OPHTHALMIC 4X/DAY [facility] Last Admin: 05/19/17 21:00 Dose: 1 drop Atorvastatin Calcium (Lipitor) 5 mg PO QHS [facility] Last Admin: 05/19/17 21:00 Dose: 5 mg Budesonide (Pulmicort Aerosol) 0.5 mg INHALATION Q12H.RT [facility] Last Admin: 05/20/17 06:52 Dose: 0.5 mg Cholecalciferol (Vitamin D) 2,000 unit PO DAILYCM [facility] Last Admin: 05/19/17 08:13 Dose: 2,000 unit Cyanocobalamin (Vitamin B12) 500 mcg PO DAILYCM [facility] Last Admin: 05/19/17 08:13 Dose: 500 mcg Dextrose (D50w Syringe) 0 gm IV X1 PRN; Protocol PRN Reason: Hypoglycemia Docusate Sodium (Colace) 200 mg PO BID [facility] Last Admin: 05/19/17 21:00 Dose: 200 mg Furosemide (Lasix) 20 mg PO [id number]@1000 [facility] Last Admin: 05/19/17 09:38 Dose: 20 mg Glucagon () 1 mg IM .X1 PRN PRN Reason: Hypoglycemia Insulin Aspart (Novolog Flexpen (Bkc)) 0 units SC ACHS [facility] PRN Reason: Protocol Last Admin: 05/19/17 21:00 Dose: 4 u Insulin Detemir (Levemir (Bkc)) 10 units SC BREAKFAST [facility] Last Admin: 05/19/17 08:12 Dose: 10 u Insulin Detemir (Levemir (Bkc)) 10 units SC DINNER [facility] Last Admin: 05/19/17 17:19 Dose: 10 u Loperamide HCl (Imodium) 4 mg PO 4X/DAY [facility] Last Admin: 05/19/17 21:00 Dose: 4 mg Loratadine (Claritin) 10 mg PO DAILY [facility] Last Admin: 05/19/17 09:38 Dose: 10 mg Losartan Potassium (Cozaar) 100 mg PO DAILY [facility] Last Admin: 05/19/17 09:38 Dose: 100 mg Metoclopramide HCl (Reglan) 10 mg IV Q8H PRN PRN PRN Reason: Nausea/vomiting Metoprolol Tartrate (Lopressor (Beta Osvaldo)) 25 mg PO BID [facility] Last Admin: 05/19/17 21:00 Dose: 25 mg Morphine Sulfate (Morphine) 2 mg IV Q2H PRN PRN PRN Reason: Mod-severe(pain scale 6-10) Non-Formulary Medication (Difluprednate) 1 drop EACH EYE BID [facility] Non-Formulary Medication (Nepafenac [Ilevro]) 1 drop OP BID [facility] Ondansetron HCl (Zofran) 4 mg IV Q8H PRN PRN Reason: Nausea Sodium Chloride () 5 - 30 ml IV UD PRN PRN Reason: SALINE FLUSH Last Admin: 05/19/17 09:42 Dose: 10 ml Tamsulosin HCl (Flomax) 0.4 mg PO QHS [facility] Last Admin: 05/19/17 21:00 Dose: 0.4 mg Assessment/Plan Patient is a 66-year-old gentleman with multiple comorbidities who was admitted by Dr. 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 Patient underwent 1 cystoscopy and right retrograde pyelogram and placement of a right axis sheath; fluoroscopic guided placement of a nephrostomy track and establishment of a right nephrostomy track; right percutaneous nephrostolithotomy for stone about 5 cm in size stage 1 procedure.; Right nephrostomy tube placement and right nephrostogram 05/18/[address] Dawson the hospitalist service was consulted to assist with management of patient medical comorbidities including hypertension as well as diabetes mellitus type 2 1. 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 Patient underwent cystoscopy and right retrograde pyelogram and placement of a right axis sheath; fluoroscopic guided placement of a nephrostomy track and establishment of a right nephrostomy track; right percutaneous nephrostolithotomy for stone about 5 cm in size stage 1 procedure.; Right nephrostomy tube placement and right nephrostogram on 05/18/[address] Dawson 2. Hypertension-blood pressure controlled, home medications continued with dose adjustment as needed 3. Dyslipidemia-patient is on statin therapy, continued at home dose 4. Diabetes mellitus type II: Controlled on long acting insulin, Accu-Cheks a.c. and at bedtime and covered with sliding scale insulin 5. Morbid obesity with BMI of 41.8 weight loss recommended 6. COPD (and emphysema0 patient is followed by Dr. Lozano 7. Gout 8. Previous history of DVT patient has an IVC filter 9. Obstructive sleep apnea on CPAP at night 10. History of right adrenal mass followed by PCP 11. DVT prophylaxis recommend SCDs for now and chemoprophylaxis when okay with urology Code Visit Inpatient E&M: 56019 Subs Hosp L2
[2017-05-20 08:29] LABS: Hematocrit 35.4 % (40-54); Hemoglobin 11.6 g/dl (13.0-16.5); Mean Corp Hgb Conc 32.8 g/gl (32-36); Mean Corpuscular Volume 88.5 fL (80-94); Platelet Count 183 K/mm3 (150-450); RBC Distribution Width CV 13.9 % (11.6-14.6); White Blood Count 8.3 K/mm3 (4.4-11.0)
[2017-05-20 08:31] LABS: Anion Gap 5 (5-15); BUN 27 mg/dL (7-18); Calcium,Total 8.1 mg/dL (8.5-10.1); Chloride 105 mmol/L (98-107); Creatinine, Serum 2.25 mg/dL (0.70-1.30); EST Glomerular Filtration Rate 31 mL/min (>60); Est Glom Filt Rate - Afr Amer 38 mL/min (>60); Estimated Creatinine Clearance 34.86 ml/min; Glucose 202 mg/dL (74-106); Magnesium 2.1 mg/dL (1.6-2.6); Potassium 4.3 mmol/L (3.5-5.1); Scan Indicated on CBC? Y/N NO; Sodium Level 141 mmol/L (136-145)
[2017-05-20] MEDS: Allopurinol 100 MG Tablet PO (09:00)
[2017-05-20] MEDS: Cyanocobalamin 500 MCG Tablet PO (09:00)
[2017-05-20] MEDS: Loratadine 10 MG Tablet PO (09:55)
[2017-05-20] MEDS: Losartan Potassium 100 MG Tablet PO (09:55)
[2017-05-20] MEDS: Furosemide 20 MG Tablet PO (09:55)
[2017-05-20] MEDS: Metoprolol Tartrate 25 MG Tablet PO (09:55)
[2017-05-20] MEDS: amLODIPine 10 MG Tablet PO (09:55)
[2017-05-20] MEDS: Loperamide 2 MG Capsule 4 MG PO ×2 (09:55→14:28)
[2017-05-20 11:26] LABS: Bedside Glucose 286 mg/dL (70-110)
--- NOTE | 2017-05-20 13:20 | PCM.PN.BLA ---
Progress Note doing much better today home today with nephrostomy tube.
== END 2017-05-20 15:00 | disposition home or self-care (01) ==
LOC: MS3 13:51
PROVIDERS: Admitting Provider Urology; Family Provider Family Medicine; PCP Family Medicine; Visit Provider Internal Medicine
PROC: (CPT 50081; principal; 2017-05-18 13:00)
DX: N20.0 Calculus of kidney (principal); D35.00 Benign neoplasm of unspecified adrenal gland; Z85.46 Personal history of malignant neoplasm of prostate; E11.9 Type 2 diabetes mellitus without complications; J45.20 Mild intermittent asthma, uncomplicated; I10 Essential (primary) hypertension; Z87.891 Personal history of nicotine dependence; Z79.899 Other long term (current) drug therapy; Z79.82 Long term (current) use of aspirin; Z79.51 Long term (current) use of inhaled steroids; Z79.4 Long term (current) use of insulin; G47.30 Sleep apnea, unspecified; Z86.718 Personal history of other venous thrombosis and embolism
CPT/HCPCS: 00862; 50081; 50395; 36415; 76000; 80048; 82962; 83735; 85027; 88300; 94640; 96361; 96365; 96366; 97802; 99218; J7030; J7120; A4216; C1758; C1769; G0378; G0379; J0744

== ENCOUNTER → 2017-05-23 09:36 | Outpatient (CLI) | payer MEDICARE, OTHER, SELFPAY ==
--- NOTE | 2017-05-23 08:00 | PET_ITS ---
EXAMINATION: FDG PET CT INDICATIONS: A 66-year-old male with reported history of colorectal carcinoma presenting for restaging examination and evaluation of pulmonary nodularity. COMPARISON EXAMINATION: CT of the chest report dated 03/17/17. INDEX LESION SIZE SUV INTERPRETATION Bilateral hemithorax pulmonary parenchyma (n R 9) 26.4 mm largest (frame 235) 2.7 (max) Fulfills quantitative criteria for viable neoplasm Bilateral adrenal glands 4.3 (max) Fulfills quantitative criteria for viable neoplasm TECHNIQUE: Following the intravenous administration of 12.49 mCi of F-18 deoxyglucose via the right antecubital fossa, multiplanar image acquisitions of the neck, chest, abdomen and pelvis to level of mid thigh, obtained at one hour post radiopharmaceutical administration contemporaneously interpreted with the current CT of the neck, chest, abdomen and pelvis to level of mid thigh, dated 05/23/[address] of the chest report dated 03/17/17 reveal: SERUM GLUCOSE LEVEL: 105 mg/dl. HEIGHT: 71 inches. WEIGHT: 300 lbs. FINDINGS: 1. Several nodular foci of enhanced glucose metabolism are manifest in the bilateral hemithorax pulmonary parenchyma generating a calculated maximum standard uptake value of 2.7. The maximal axial diameter of the largest individual parenchymal density on review of CT of the thorax dated 05/23/17 is 26.4 mm. 2. Enhanced glucose metabolism is manifest in the right upper abdomen, which appears contiguous to an enlarged right adrenal gland and a normal sized left adrenal gland. The calculated maximum standard uptake value is 4.3. 3. Normal physiologic distribution of the radiopharmaceutical is apparent in the hepatic (2.5) and splenic parenchyma, both renal units, bladder and visualized intestinal tract. There is uniform distribution of the radiopharmaceutical concentration compared on the cerebellar hemispheres and cerebral cortex. Diffuse intestinal tract activity is noted throughout all four quadrants of the abdominal-pelvic retroperitoneum, mesentery consistent with normal physiologic distribution of the radiopharmaceutical. Prominent glucose metabolism is defined in the distribution of the right masseter and right pterygoid musculature, as well as focally apparent in the oral cavity to the left of the midline in proximity to dental hardware placement. A calcified density noted in proximity to the right renal unit demonstrates no evidence of quantitatively significant increased glucose metabolism. Prominent lower extremity and right upper posterior chest wall skeletal muscle concentration of radiopharmaceutical is noted consistent with a component of muscle tension artifact. Pertinent CT findings are as follows. CHEST: Coronary arterial calcification is observed. Bilateral axillary soft tissue densities are ametabolic. Parenchymal densities defined in the bilateral hemithorax demonstrate quantitatively significant increased glucose metabolism as previously described. ABDOMEN AND PELVIS: Cholelithiasis is demonstrated. Apparent calcification is noted within the hepatic parenchyma. There is apparent large calculus formation noted within the right kidney collecting system. Nephrostomy tube placement is noted. Atherosclerotic calcification is defined in the abdominal aorta without evidence of dilatation, aneurysm formation. Pelvic arterial calcification is observed. There is evidence of filter placement within the inferior vena cava. Seed placement is demonstrated in the prostate gland, prostatic bed. Postsurgical changes appear evident in the region of the sigmoid colon and rectum. SKELETAL: Degenerative changes defined in the cervical, thoracic and lumbar spine demonstrate no evidence for glucose hypermetabolism. PET/PET/CT Tumor Base -Thigh Init IMPRESSION: 1. Increased glucose metabolism demonstrated in the bilateral hemithorax pulmonary parenchyma fulfills quantitative criteria for viable neoplasm with single-point technique. Definitive histopathologic analysis is recommended. (Genesis et al, Annals of Internal Medicine, 138:724, 2003). 2. The increase in glucose concentration noted in the bilateral upper abdomen contiguous to the adrenal glands fulfills quantitative criteria for viable adrenal gland neoplasm. (Aydin and Sandyer, Journal of Nuclear Medicine 42:151 P 2002. Renan et al, Journal of Nuclear Medicine 45:1340, 2004). 3. Facilitated glucose concentration observed in the oral cavity in proximity to dental hardware placement is most consistent with a component of metallic reconstruction artifact. (David et al, AJR 179:1337, 2002). Electronic Signature Kishan Santana D.O. Electronically Signed: Kishan Santana DO at 23:59 EST Tel , Service support ,
[2017-05-24 14:16] LABS: Anti-dsDNA Ab 11 IU/mL (0-9)
[2017-05-25 20:08] LABS: Angiotensin Convert Enzyme 45 U/L (14-82)
[2017-05-26 08:38] LABS: Histoplasma Abs Negative (Neg:<1:1)
== END ==
PROVIDERS: Family Provider Family Medicine; PCP Family Medicine; Visit Provider Internal Medicine Pulmonary Disease
DX: R91.1 Solitary pulmonary nodule (principal); J47.9 Bronchiectasis, uncomplicated
CPT/HCPCS: 36415; 78815; 82164; 86225; 86698; A9552; A4216

== ENCOUNTER 2017-06-09 16:03 | Inpatient (IN) | payer MEDICARE, OTHER, SELFPAY ==
[2017-06-08] VITALS (13 sets, daily range): BP systolic 117–164; BP diastolic 56–86; PULSE 69–101; RESP 16–18; TEMP 36.5–37.1; O2SAT 92–98; BMI 44.4
[2017-06-08 11:35] LABS: Bedside Glucose 100 mg/dL (70-110)
--- NOTE | 2017-06-08 11:44 | EKG12_ITS ---
Test Reason : PRE OP Blood Pressure : / mmHG Vent. Rate : 068 BPM Atrial Rate : 068 BPM P-R Int : 170 ms QRS Dur : 106 ms QT Int : 420 ms P-R-T Axes : 036 -24 -34 degrees QTc Int : 446 ms Normal sinus rhythm Nonspecific ST and T wave abnormality Abnormal ECG No previous ECGs available Confirmed by LUIS FELIPE GUERRERO, LUIS DANIEL ([id number]), tape editor ZAID MOORE ([id number]) on 06/10/2017 2:57:03 PM Referred By: Delbert Dawson Confirmed By:LUIS DANIEL BRISCOE MD
[2017-06-08] MEDS: Cefazolin 2 GM in 0.9% Normal Saline 100 ML IV (12:57)
--- NOTE | 2017-06-08 14:01 | OP.PCM_ITS ---
Report of Operation Date of Procedure: 06/08/17 Pre-Operative Diagnosis: Status post first stage percutaneous removal of kidney stones from the right kidney and establishment of nephrostomy track Post-Operative Diagnosis: Same Surgery/Procedure Performed:: Right percutaneous nephrostolithotomy, stage related procedure second stage. Placement of a right nephrostomy tube. Right Ureteroscopy basket of stones and extraction. Description of Surgical Findings:: 66-year-old male who underwent a first stage percutaneous removal of kidney stones at that point we had established the track and had removed a lot of the stone burden however he has still had a significant amount of stone burden left because of the prior case had already gone 5 hours for safety sake with stopped the procedure and our coming back for second stage percutaneous removal of stones in the right kidney. This is a stage related procedure to the first procedure that was done a few weeks ago. 66-year-old male was taken back to the operating room after smooth induction of general anesthesia he was placed supine on the table and a Carcamo catheter was placed. After induction of anesthesia he was then placed prone on the table with his right arm out his left arm tucked in he was padded to the table the right nephrostomy tube that was already in place with prepped and draped at around that tube and then through the nephrostomy tube I first performed a nephrostogram to delineate the anatomy I could see few fragments down the ureter and some in the lateral fragment still in the renal pelvis I advanced Super Stiff wire in but it kind coiled so I decided not to use that one and the used a Glidewire and the Glidewire then coiled nicely in the kidney over the Glidewire advanced the balloon dilator once the balloon light it was to the kidney then I balloon dilated the track I had to use a 22 cm nephrostomy tube 30 [place] sheath and this allowed me to reach the stones and the right renal pelvis with the stones were. I then used the ultrasonic lithotripter from [employer] and performed ultrasonic lithotripsy on the stones removing the stones as they were broken up with ultrasonic waves. This went fairly quickly all the stones were evacuated fairly quickly took about 45 minutes to remove the remainder of the stone fragments I then went down the ureter with a flexible cystoscope and encountered some other large stone fragments in the proximal ureter these were used removed with a basket using a flexible nitinol basket once I had basketed out the stones in the proximal ureter I went all the way down the ureter with a flexible ureteroscope and inspected the entire length of the ureter only a few fragments are seen along the course of the ureter these fragments should pass on their own I then inspected the upper pole midpole lower pole of the kidney no other major fragments are seen all the major fragments were removed. At this point I was satisfied that I removed all the major fragments few fragments in the ureter that will pass in the round I put a nephrostomy tube and the right-sided nephrostogram left 3 cc of contrast in the balloon and the patient's anesthetic is currently being reversed. Probably will clamp the nephrostomy tube tomorrow and he will go home in about 48 hours without a nephrostomy tube. Type of Anesthesia:: General Drains: right nephrostomy tube - Admit VTE Documentation VTE Present on Admission: No VTE Mechan Device Prophylaxis: SCD's VTE Pharm Prophylaxis ordered?: No Reason prophylaxis not ordered:: Treatment Not Indicated
[2017-06-08 14:36] LABS: Bedside Glucose 126 mg/dL (70-110)
[2017-06-08] MEDS: 0.9% Normal Saline 1,000 ML 125 ML IV ×2 (14:42→21:00)
--- NOTE | 2017-06-08 16:33 | NURSING ---
BP 140/71, HR 72, RESP 16, SAT 93% ROOM AIR. TEMP 97.3 TA. DENIES PAIN.
[2017-06-08] MEDS: Allopurinol 100 MG Tablet PO (18:18)
[2017-06-08] MEDS: Loperamide 2 MG Capsule 4 MG PO ×2 (18:27→21:24)
[2017-06-08] MEDS: Budesonide Respules 0.5 MG/2 ML AMPUL.NEB. INHALATION (19:42)
[2017-06-08] MEDS: Albuterol 2.5 MG/3 ML VIAL.NEB. INHALATION (19:42)
[2017-06-08] MEDS: Cefazolin 1 GM/50 ML BAG IV (21:00)
[2017-06-08] MEDS: Tamsulosin HCl 0.4 MG Capsule PO (21:23)
[2017-06-08] MEDS: Atorvastatin Calcium 10 MG Tablet 5 MG PO (21:23)
[2017-06-08] MEDS: Metoprolol Tartrate 25 MG Tablet PO (21:24)
[2017-06-08] MEDS: Insulin NPH Human 100 UNITS/ML PEN 42 UNITS SC (21:32)
[2017-06-08 22:46] LABS: Bedside Glucose 172 mg/dL (70-110)
[2017-06-09] VITALS (11 sets, daily range): BP systolic 117–144; BP diastolic 58–76; PULSE 56–88; RESP 16–21; TEMP 36.9–37.1; O2SAT 92–98
[2017-06-09] MEDS: 0.9% Normal Saline 1,000 ML 125 ML IV (05:02)
[2017-06-09] MEDS: Cefazolin 1 GM/50 ML BAG IV (05:03)
[2017-06-09] MEDS: Budesonide Respules 0.5 MG/2 ML AMPUL.NEB. INHALATION ×2 (06:47→18:40)
[2017-06-09] MEDS: Albuterol 2.5 MG/3 ML VIAL.NEB. INHALATION ×2 (06:47→18:40)
--- NOTE | 2017-06-09 07:43 | PCM.PROGNOTE ---
Subjective: s/p perc doing well nephrostomy tube removed today.; - Physical Exam General: Alert, Oriented x3, Cooperative HEENT: Atraumatic, PERRLA, EOMI, Normocephalic Neck: Supple, No JVD, Negative Carotid Bruits Lungs: Clear to auscultation, Normal air movement Cardiovascular: Regular rate, No murmurs Abdomen: Bowel Sounds Present, Soft, Non Tender Extremities: No edema, Capillary Refill Less than 3 Seconds Skin: No rashes, No breakdown Musculoskeletal: No Tenderness to Palpation of Joints or Extremities Neurological: Cranial nerves II-XII grossly intact Psych/Mental Status: Normal Affect, Appropriate Vital Signs Temp Pulse Resp BP Pulse Ox 98.4 F 88 21 H 135/68 H 96 06/09/17 03:15 06/09/17 06:50 06/09/17 06:50 06/09/17 03:15 06/09/17 07:30 Oxygen Flow Rate (L/min) 2 Oxygen Delivery Method Nasal Cannula Weight: 144.3 kg Body Mass Index (BMI) 44.4 Finger Stick Blood Glucose 126 Intake and Output for Last 24 Hours 06/07/17 06/08/17 06/09/17 23:59 23:59 23:59 Intake Total 2950 / 2950 1754 / 1754 Output Total 910 / 910 1430 / 1430 Balance 2040 / 2040 324 / 324 POC Glucose 06/08/17 06/08/17 06/08/17 21:31 14:32 11:25 POC Glucose 172 H 126 H 100 Medical Necessity - Tobacco Use Smoking Status: Never smoker Assessment/Plan d/c abel heplock ivf nephrostomy tube removed home tomorrow.
[2017-06-09 07:54] LABS: Hemoglobin 10.2 g/dl (13.0-16.5); Mean Corp Hgb Conc 31.9 g/gl (32-36); Mean Corpuscular Hgb 28.2 pg (27.0-32.0); Mean Corpuscular Volume 88.4 fL (80-94); Mean Platelet Vol. 8.6 fl (6.2-12.0); Platelet Count 224 K/mm3 (150-450); RBC Distribution Width CV 14.1 % (11.6-14.6); RBC Distribution Width SD 45.6 fl (35.1-43.9); Red Blood Count 3.62 M/mm3 (4.6-6.2); Scan Indicated on CBC? Y/N NO; White Blood Count 7.3 K/mm3 (4.4-11.0)
[2017-06-09 08:22] LABS: Anion Gap 5 (5-15); BUN 29 mg/dL (7-18); BUN/Creat Ratio 15.3 RATIO (10-20); Calcium,Total 7.8 mg/dL (8.5-10.1); Chloride 111 mmol/L (98-107); EST Glomerular Filtration Rate 38 mL/min (>60); Est Glom Filt Rate - Afr Amer 46 mL/min (>60); Estimated Creatinine Clearance 41.28 ml/min; Glucose 104 mg/dL (74-106); Potassium 4.4 mmol/L (3.5-5.1); Sodium Level 143 mmol/L (136-145)
[2017-06-09] MEDS: Aspirin E.C. 81 MG Tablet PO (08:36)
[2017-06-09] MEDS: Allopurinol 100 MG Tablet PO ×2 (08:37→16:46)
[2017-06-09] MEDS: Losartan Potassium 100 MG Tablet PO (08:37)
[2017-06-09] MEDS: Docusate Sodium 100 MG Capsule 200 MG PO (08:37)
[2017-06-09] MEDS: LINAGLIPTIN 5 MG TABLET PO (08:38)
[2017-06-09] MEDS: Loratadine 10 MG Tablet PO (08:40)
[2017-06-09] MEDS: amLODIPine 10 MG Tablet PO (08:40)
[2017-06-09] MEDS: Cyanocobalamin 500 MCG Tablet PO (08:40)
[2017-06-09] MEDS: Metoprolol Tartrate 25 MG Tablet PO ×2 (08:40→21:06)
[2017-06-09] MEDS: Loperamide 2 MG Capsule 4 MG PO ×4 (08:41→21:12)
[2017-06-09] MEDS: Insulin NPH Human 100 UNITS/ML PEN 55 UNITS SC (09:26)
[2017-06-09 12:01] LABS: Bedside Glucose 168 mg/dL (70-110)
[2017-06-09 16:30] LABS: Bedside Glucose 153 mg/dL (70-110)
[2017-06-09] MEDS: Tamsulosin HCl 0.4 MG Capsule PO (21:06)
[2017-06-09] MEDS: Atorvastatin Calcium 10 MG Tablet 5 MG PO (21:06)
[2017-06-09] MEDS: Insulin NPH Human 100 UNITS/ML PEN 42 UNITS SC (21:13)
[2017-06-09 22:00] LABS: Bedside Glucose 143 mg/dL (70-110)
[2017-06-10 02:00] VITALS: BP 132/64; PULSE 67; PULSE 72; RESP 16; TEMP 36.9; O2SAT 94; O2SAT 95
[2017-06-10] MEDS: Albuterol 2.5 MG/3 ML VIAL.NEB. INHALATION ×2 (06:42→13:04)
[2017-06-10] MEDS: Budesonide Respules 0.5 MG/2 ML AMPUL.NEB. INHALATION (06:43)
[2017-06-10 06:45] VITALS: PULSE 64; RESP 20; O2SAT 94
[2017-06-10 07:26] LABS: Bedside Glucose 81 mg/dL (70-110)
[2017-06-10] MEDS: Allopurinol 100 MG Tablet PO (08:56)
[2017-06-10] MEDS: Docusate Sodium 100 MG Capsule 200 MG PO (08:56)
[2017-06-10] MEDS: Aspirin E.C. 81 MG Tablet PO (08:56)
[2017-06-10] MEDS: Loratadine 10 MG Tablet PO (08:56)
[2017-06-10 08:57] VITALS: PULSE 85
[2017-06-10] MEDS: Losartan Potassium 100 MG Tablet PO (08:57)
[2017-06-10] MEDS: amLODIPine 10 MG Tablet PO (08:57)
[2017-06-10] MEDS: Metoprolol Tartrate 25 MG Tablet PO (08:57)
[2017-06-10] MEDS: LINAGLIPTIN 5 MG TABLET PO (08:57)
[2017-06-10] MEDS: Cyanocobalamin 500 MCG Tablet PO (08:59)
[2017-06-10] MEDS: Insulin NPH Human 100 UNITS/ML PEN 55 UNITS SC (08:59)
[2017-06-10] MEDS: Loperamide 2 MG Capsule 4 MG PO (09:01)
[2017-06-10 09:04] VITALS: BP 144/76; PULSE 85; RESP 16; TEMP 36.8; O2SAT 94
--- NOTE | 2017-06-10 11:30 | CASEMGMT ---
KINGSLEY SKINNER Face to Face with patient for initial transition planning/care coordination assessment. KINGSLEY SKINNER introduced self and role at [facility]. Patient sitting in chair, alert and oriented. Patient willing to participate in assessment and is able to answer all questions appropriately. Care providers, pharmacy, and demographics verified. Patient states that he is a resident at [facility]. Pt states he has no further needs or concerns at this time. NEREIDA Shahid and Jeanette El notified of patient living at [facility].
--- NOTE | 2017-06-10 12:25 | PCM.DC.SUM ---
Discharge Date and Diagnosis Date of Admission: 06/08/17 Date of Discharge: 06/10/17 Hospital Course and Treatment Operations: - - Percutaneous right nephrostolithotomy Procedures: None Summary of Care Provided: The patient is a 67 year old male with a staghorn right calculus status post percutaneous removal of stones, postoperative day #1 the nephrostomy tube was removed. On postoperative day #2 he was advanced to regular diet ambulating had no pain little to no fluid from the back has been urinating well catheter was removed he is discharged back to home in good condition. Discharge Diet: Light diet - advance as tolerated Discharge Activity: Return to Normal Activity Call your doctor if your incision/area has: Continuous Slow Oozing, Sudden Increased Bleeding, Increased Pain/ Swelling, Increased Redness, Foul Smelling Discharge, Swelling at the incision site Call your doctor if you observe: Fever of 101 or Higher Suture Line Care: Avoid Pulling/Pushing, Avoid Pinching/Bending Home Medications: Medications to take at Discharge Acetaminophen [Extra Strength Non-Aspirin] 1 - 2 tab PO Q8H PRN PRN 05/10/17 Albuterol Inhaler [Ventolin Hfa] 1 - 2 puff INHALATION Q6H PRN PRN 05/10/17 Allopurinol 100 mg PO BID 05/10/17 Amlodipine [Norvasc] 10 mg PO DAILY 05/10/17 Aspirin [Aspir-Low] 81 mg PO DAILY 05/10/17 Budesonide/Formoterol 160/4.5 [Symbicort 160/4.5 Mcg Inhaler (SP)] 2 puff INHALATION BID 05/10/17 Cetirizine HCl [Zyrtec] 10 mg PO DAILY 05/10/17 Cholecalciferol (Vitamin D3) [Vitamin D3] 2,000 unit PO DAILY 05/10/17 Cyanocobalamin [Vitamin B12] 500 mcg PO DAILY 05/10/17 Difluprednate [Durezol] 1 drop RIGHT EYE TID 05/10/17 Insulin NPH Human Isophane [Novolin N] 42 unit SQ QHS 05/10/17 Insulin NPH Human Isophane [Novolin N] 55 unit SQ DAILY 05/10/17 Linagliptin [Tradjenta] 5 mg PO DAILY 05/10/17 Loperamide [Imodium] 4 mg PO 4X/DAY 05/10/17 Losartan Potassium [Cozaar] 100 mg PO DAILY 05/10/17 Metoprolol Tartrate [Lopressor (beta gisele)] 25 mg PO BID 05/10/17 Polyvinyl Alcohol/Povidone/Pf [Refresh Classic Eye Drops] 1 each OP 4X/DAY 05/10/17 Simvastatin [Zocor] 10 mg PO QHS 05/10/17 Tamsulosin HCl [Flomax] 0.4 mg PO QHS 05/10/17 Torsemide [Demadex] 10 mg PO MOTUWETHFR 05/10/17 Albuterol Aerosols [Ventolin Aerosols] 2.5 mg INHALATION TID 06/02/17 Bromfenac Sodium [Bromsite] 1 drop RIGHT EYE DAILY 06/02/17 Budesonide Aerosol [Pulmicort Respules] 0.5 mg INHALATION BID 06/02/17 Ciprofloxacin [Cipro] 500 mg PO BID #14 tab 06/10/17 Following Prescrptions Were Given to Patient: Ciprofloxacin [Cipro] 500 mg PO BID #14 tab Primary Care Physician: Yoli Benedict MD [Primary Care Provider] - Please Follow Up With: Delbert Dawson MD When: in 2 weeks, please call to make an appointment. Medical Necessity - Tobacco Use Smoking Status: Never smoker Tobacco Use: Non-smoker Meaningful Use Info Meaningful Use Diagnoses (Choose all that apply): None applicable
[2017-06-10 13:05] VITALS: PULSE 70; RESP 20
== END 2017-06-10 14:03 | disposition home or self-care (01) | DRG 660 ==
LOC: SDC 16:27
PROVIDERS: Admitting Provider Urology; Family Provider Family Medicine; PCP Family Medicine; Visit Provider Urology
DX: N20.0 Calculus of kidney (principal); Z68.41 Body mass index [BMI] 40.0-44.9, adult; J43.9 Emphysema, unspecified; I10 Essential (primary) hypertension; E11.9 Type 2 diabetes mellitus without complications; Z79.899 Other long term (current) drug therapy; Z85.46 Personal history of malignant neoplasm of prostate; Z92.3 Personal history of irradiation; E66.9 Obesity, unspecified; Z79.4 Long term (current) use of insulin
CPT/HCPCS: 36415; 76000; 80048; 82962; 85027; 93005; 94640; 97802; J3010; J7030; J7120; C1758; C1769; J2405

== ENCOUNTER → 2017-06-20 13:50 | Outpatient (CLI) | payer MEDICARE, OTHER, SELFPAY ==
[2017-06-20 14:26] LABS: International Normalized Ratio 1.1
== END ==
PROVIDERS: Family Provider Family Medicine; PCP Family Medicine; Visit Provider Internal Medicine Pulmonary Disease
DX: Z79.01 Long term (current) use of anticoagulants (principal)
CPT/HCPCS: 36415; 85610; 85730

== ENCOUNTER → 2017-06-22 09:06 | Outpatient (CLI) | payer MEDICARE, OTHER, SELFPAY ==
--- NOTE | 2017-06-22 09:10 | CT_ITS ---
PROCEDURE: CT GUIDED biopsy of the right adrenal gland. DATE: June 22, 2017. INDICATION: Male, 67 years old. Right adrenal mass. PHYSICIAN: Beka Rivera M.D. RADIATION DOSAGE (If Supplied By Facility): CTDIvol = ( 21 ) mGy, DLP = ( 1577.03 ) mGycm. Individualized dose augmentation techniques were utilized. PROCEDURE: The risks, benefits, and alternatives to the procedure were explained to the patient. The specific risk of hemorrhage requiring further treatment or intervention was detailed and accepted. Follow-up instructions were discussed with the patient as well. Written informed consent was obtained. The patient was brought into the CT suite and placed in the left lateral decubitus position. . An appropriate entry site was identified. The overlying skin was prepped and draped in the usual sterile fashion. 1% lidocaine was administered subcutaneously for local anesthesia. Conscious sedation was performed. The patient received 1 mg of Versed and 50 mcg of fentanyl intravenously. The patient was independently monitored by the department nurse. Conscious sedation was started 9:58 AM and terminated at 10:33 AM. Multiple attempts in the left lateral decubitus addition as well as prone position were performed. The patient was unable to cooperate. The biopsy was canceled. The patient tolerated the procedure well without immediate complications. CT/Biopsy/Inj or Needle Placement IMPRESSION: Attempted CT-guided biopsy of the right adrenal gland. Electronically Signed: Beka Rivera MD at 11:15 EDT Tel [phone], Service support ,
[2017-06-22 09:16] VITALS: BP 170/82; PULSE 83; RESP 20; TEMP 37; O2SAT 93; BMI 41.8
[2017-06-22 12:00] VITALS: BP 101/53; PULSE 74; RESP 18; O2SAT 98
== END ==
PROVIDERS: Family Provider Family Medicine; PCP Family Medicine; Visit Provider Internal Medicine Pulmonary Disease
DX: E27.9 Disorder of adrenal gland, unspecified (principal); R91.1 Solitary pulmonary nodule; J47.9 Bronchiectasis, uncomplicated; I10 Essential (primary) hypertension; G47.33 Obstructive sleep apnea (adult) (pediatric); E66.01 Morbid (severe) obesity due to excess calories; E11.9 Type 2 diabetes mellitus without complications; Z79.4 Long term (current) use of insulin; E78.00 Pure hypercholesterolemia, unspecified; E55.9 Vitamin D deficiency, unspecified; M10.9 Gout, unspecified; Z87.891 Personal history of nicotine dependence; Z87.01 Personal history of pneumonia (recurrent); Z79.82 Long term (current) use of aspirin; Z79.899 Other long term (current) drug therapy
CPT/HCPCS: 10022; 77012; 99156; 99157; J7040; A4216